=== PATIENT | male | born 1965 | race Caucasian/White ===

== ENCOUNTER 2018-10-26 16:00 | Emergency (ER) | payer BC ==
[~2018-10-26] VITALS: Ht 177.8 cm; Wt 83.9 kg
[2018-10-26] MEDS ORDERED: LOSARTAN POTASS25 MG (16:15)
[2018-10-26] MEDS ORDERED: ATORVASTATIN CA20 MG (16:15)
== END 2018-10-27 03:41 | disposition home or self-care (01) ==
LOC: ER 16:00
DX: K40.91 Unilateral inguinal hernia, without obstruction or gangrene, recurrent (principal); K59.09 Other constipation